=== PATIENT | male | born 1960 | race Two or more races ===

== ENCOUNTER 2023-05-17 23:50 | Emergency (ER) | payer OTHER ==
[~2023-05-17] VITALS: Ht 177.8 cm; Wt 84.8 kg
[2023-05-18] MEDS ORDERED: COZAAR25 MG (00:04)
[2023-05-18] MEDS ORDERED: TAMS0.4C (00:04)
[2023-05-18] MEDS ORDERED: DUTASTERIDE-TA1 EACH (00:04)
== END 2023-05-18 02:47 | disposition left against medical advice (07) ==
LOC: ER 23:50
DX: S51.022A Laceration with foreign body of left elbow, initial encounter (principal); W18.39XA Other fall on same level, initial encounter; Y93.89 Activity, other specified; Y92.511 Restaurant or cafe as the place of occurrence of the external cause